=== PATIENT | female | born 2000 | race Caucasian/White ===

== ENCOUNTER 2024-06-26 07:57 | Inpatient (IN) ==
[2024-06-26] MEDS ORDERED: OXYTOCIN 10 UNIT/ML VIAL IM PRN (08:05)
[2024-06-26] MEDS ORDERED: fentaNYL 100 MCG/2 ML VIAL IVP PRN (08:05)
[2024-06-26] MEDS ORDERED: LABETALOL 20 MG/4 ML SYRINGE IVP PRN ×5 (08:05→19:31)
[2024-06-26] MEDS ORDERED: lidocaine 1% 20 ML MDV ID PRN (08:05)
[2024-06-26] MEDS ORDERED: TERBUTALINE 1 MG/ML VIAL SUBQ PRN (08:05)
[2024-06-26] MEDS ORDERED: hydrALAZINE INJ 20 MG/ML VIAL IVP PRN ×3 (08:05→19:31)
[2024-06-26] MEDS ORDERED: TRANEXAMIC ACID IN NACL 1,000 MG/100 ML BAG IV PRN (08:05)
[2024-06-26] MEDS ORDERED: NIFEdipine 10 MG CAPSULE PO PRN ×2 (08:05→19:31)
[2024-06-26] MEDS ORDERED: METHYLERGONOVINE 0.2 MG/ML VIAL IM PRN (08:05)
[2024-06-26] MEDS ORDERED: miSOPROStoL 200 MCG TABLET PR PRN (08:05)
[2024-06-26] MEDS ORDERED: miSOPROStoL 200 MCG TABLET BC PRN (08:05)
[2024-06-26] MEDS ORDERED: METOCLOPRAMIDE 10 MG TABLET PO PRN (08:09)
--- NOTE | 2024-06-26 08:13 | HISTORY & PHYSICAL EXAMINATION ---
Admit History Smoking Status: Never smoker Other Maternal History Other Maternal History: HPI: This 23 yo G1P @ 40 weeks by LMP and confirmed by 13+3 week ultrasound, presents to L&D for scheduled induction of labor but has been tyrone and laboring throughout the night. Minimal rest between contraction. No leaking of fluids or concern for SROM. Contractions continued to become stronger and closer together throughout the night. Upon arrival her cervix was 6/100/-2 vertex with intact membranes. Reviewed that risks of labor include but are not limited to section, prolonged labor, vacuum extraction, episotomy, hemorrhage, and additional risks exist re: prolonged second stage related to extraction. Reviewed back up OBGYN is available for consultations, emergency interventions and transfer of care if indicted. She has been a patient of [facility] care for the duration of her which has remained uncomplicated. ROS: No Headache, visual changes or right upper quadrant abdominal pain. Denies significant N/V. Denies urinary urgency or dysuria. All other symptoms reviewed and were negative except per HPI. In the event of an emergency, accepts the administration of blood products. Recent BP: WNL Labs: H&H 10.7/34.5, 233 Last u/s EFW: (06/09/2024) 3136.3 g (48.8%) Total maternal weight gain: 43# Expected Delivery Route/Plan Anticipate Specific Issues/Plans LMP: 09/20/2023 JENNIFER by LMP: 06/26/2024 U/S: 12/24/2023 @ 13+3 weeks Final JENNIFER: 06/26/2024 ALLERGIES NKDA RX: Aspirin, Epipen, Pepcid, Reglan, PNV Medical Hx: no significant Surgical: None FMHX: Aunt: Breast Cancer MGM : Cancer Social Hx: Never smoker. No ETOH or IV drug use. Partner Magdalena is active duty [employer]. She works as an infant and toddler daycare worker. Pre- weight:135 BMI: Blood type: O+ Antibody screen: neg CBC: PLT: 246 HCT: 39.7% HGB:14.2 rubella: Immune VZV: NR HBsAg: negative HepC: NR RPR/AB-EIA: NR HIV:NR Flu: 12/09/2024 COVID: x3 (booster 12/09/2024) PAP: GC/CT: 12/24/2023 Negative HSV:denies self and partner Genetic Testing:NIPT- negative AFP- NO FAS:02/14/2024 Placenta: Left Anterior Cord: 3VC MELY: 11.9cm EFW: 378g 34%tile 50gm GCT: 98 TDAP:BASE Breast Pump:has one 3rd trimester H/H- 11.5/34.7; PLT- 230 GBS: 05/29/2024 negative Physical exam: Normocephalic, atraumatic No increased work of breathing. Abdomen gravid, soft, nontender. EFW 3600 FHR baseline 135, minimal to moderate variability, + accelerations, no decelerations Contractions palpate moderate every 2-5 minutes with soft resting tone SVE 6/100/-2, vertex, membranes intact Bilateral LE's no edema Mood is good. Assessment: 23 yo @ 40+0 weeks gestation by 13+3 wk U/S Active labor FHR 135 Cat I GBS NEG Plan: Admit to [facility] for Expectant management Continuous monitoring/ Intermittent heart rate auscultation as indicated by unit protocol Jacuzzi PRN. Nitrous oxide PRN. Epidural PRN Maternal Request, desires at the time of admission Anticipate . Meds/Allgy Home Medications Ambulatory Orders Medication Instructions Recorded Confirmed vitamin with calcium 1 tab PO ONCE 12/17/23 0 06/20/24 no.72-iron 27 mg-folic acid 1 mg tablet (M-Itzel Plus) aspirin 81 mg tablet,delayed 81 mg PO QDAY #90 tabs 06/20/24 release (Adult Aspirin Regimen) epinephrine 0.3 mg/0.3 mL 0.3 mg (0.3 mL) IM Q10M PRN 12/24/23 06/20/24 injection, auto-injector (EpiPen) anaphylaxis #1 ea famotidine 20 mg tablet (Pepcid) 20 mg PO BID PRN chantal rgic symptoms 12/24/23 06/20/24 #30 tabs metoclopramide HCl 5 mg tablet 5 mg PO Q6H PRN nausea and 12/24/23 06/20/24 vomiting #60 tabs calcium carbonate (Tums) 200 mg PO BID 05/01/2406/20 Allergies Allergies Allergy/AdvReac Type Severity Reaction Status Date / Time No Known Drug Allergies Allergy Verified 06/20/24 09:12 [facility] Active Problems All Active Problems (Updated 06/26/24 @ 08:54 by Ingrid [facility]) 40 weeks gestation of (Acute) Uterine contractions (Acute) Uterine size date discrepancy (Acute) Supervision of normal in third trimester (Acute) Abnormal ultrasound (Acute) Pelvic pain in female (Acute) Supervision of normal in second trimester (Acute) Encounter for other specified screening (Acute) Encounter for supervision of normal , unspecified, first trimester (Acute) Positive test (Acute) Family History Family History (System 03/14/24 @ 08:47 by Lucy Terry) Aunt Breast cancer Maternal grandmother Cancer Social History Social History (System 03/14/24 @ 08:47 by Lucy Terry) Smoking Status: Never smoker Second hand tobacco smoke exposure: No Do you dip or chew tobacco?: No Do you vape?: No Relationship: Do you feel safe in your home environment?: Yes Suffered physical, verbal, emotional, or financial abuse?: No 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
[2024-06-26] MEDS: LACTATED RINGERS 1,000 ML IV PRN (08:36)
[2024-06-26 08:38] LABS: BASOPHILS % (AUTO) 0.3 %; EOSINOPHILS % (AUTO) 0.1 %; HCT - HEMATOCRIT 34.5 % (37.0-47.0); HGB - HEMOGLOBIN 10.7 g/dL (12.0-16.0); LYMPHOCYTES # (AUTO) 1.4 10^3/uL (1.5-3.5); LYMPHOCYTES % (AUTO) 8.9 %; MEAN CORPUSCULAR HEMOGLOBIN 25.7 pg (27.0-31.0); MEAN CORPUSCULAR VOLUME 82.7 fL (81.0-99.0); MEAN PLATELET VOLUME 11.4 fL (7.9-10.8); MONOCYTES # (AUTO) 0.8 10^3/uL (0.0-1.0); MONOCYTES % (AUTO) 4.8 %; NEUTROPHILS # (AUTO) 13.5 10^3/uL (1.5-6.6); NEUTROPHILS % (AUTO) 85.4 %; PLT - PLATELET COUNT 233 10^3/uL (130-450); RED BLOOD COUNT 4.17 10^6/uL (4.20-5.40); RED CELL DISTRIBUTION WIDTH 13.9 % (12.0-15.0); WHITE BLOOD COUNT 15.8 x10^3/uL (4.8-10.8)
[2024-06-26] MEDS ORDERED: LIDOCAINE 2%-EPI 1:100000 20 ML MDV ONE (08:55)
[2024-06-26] MEDS ORDERED: ROPIVACAINE 0.2% 200 MG/100 ML BAG EP ONE (08:55)
[2024-06-26] MEDS: LACTATED RINGERS 500 ML IV ONE (09:45)
[2024-06-26] MEDS: LACTATED RINGERS 1,000 ML IV SCH (09:48)
[2024-06-26] MEDS ORDERED: NALOXONE 0.4 MG/ML VIAL IVP PRN ×2 (09:49→19:31)
[2024-06-26] MEDS ORDERED: ePHEDrine 50 MG/ML VIAL IVP PRN (09:49)
[2024-06-26] MEDS ORDERED: ONDANSETRON 4 MG/2 ML VIAL IVP PRN (09:49)
[2024-06-26] MEDS ORDERED: diphenhydrAMINE INJ 50 MG/ML VIAL IVP PRN (09:49)
[2024-06-26] MEDS ORDERED: NALBUPHINE 10 MG/ML AMP IVP PRN (09:49)
[2024-06-26] MEDS ORDERED: METOCLOPRAMIDE 10 MG/2 ML VIAL IVP PRN (09:49)
--- NOTE | 2024-06-26 09:49 | PHARMACY PROGRESS NOTE ---
Best Possible Medication History Admit Date and Time: 06/26/24 [id number] Home Medications Medication Instructions Recorded Confirmed Type vitamin with calcium 1 tab PO ONCE 12/17/23 0 06/26/24 History no.72-iron 27 mg-folic acid 1 mg tablet (M-Itzel Plus) aspirin 81 mg tablet,delayed 81 mg PO QDAY #90 tabs 06/26/24 Rx release (Adult Aspirin Regimen) epinephrine 0.3 mg/0.3 mL 0.3 mg (0.3 mL) IM Q10M PRN 12/24/23 06/20/24 Rx injection, auto-injector (EpiPen) anaphylaxis #1 ea famotidine 20 mg tablet (Pepcid) 20 mg PO BID PRN chantal rgic symptoms 12/24/23 06/26/24 Rx #30 tabs calcium carbonate (Tums) 200 mg PO BID 05/01/2406/26 History Medications reviewed in ED?: Yes Medication History completed: Yes Patient Interview: Pt unable to participate Secondary Source(s): Caregiver and Insurance records [facility] Statement: Per RN conversation and review of [facility] records. As the person ultimately responsible for medication therapy, providers are able to order a medication from an existing home medication list in [facility] via the "Reconcile Routine" prior to Confirmation of that medication by security support analyst. Such practice is discouraged except when the physician, in their clinical judgment, deems that a medical need exists for a medication without regard to previous use.
--- NOTE | 2024-06-26 10:46 | ANESTHESIA PROCEDURE NOTE ---
Pre-Anesthesia VS, & Labs Diagnosis Surgical Diagnosis:: 40 weeks, presenting in labor/6cm Procedure Procedure: placement of labor epidural Vitals Vital Signs: Temp Pulse Resp BP 36.9 C 94 16 125/73 06/26/24 08:42 06/26/24 08:42 06/26/24 08:42 06/26/24 08:42 Height (in): 5 ft 4 in Weight (kg): 78 kg Body Mass Index: 29.5 BMI Classification: Overweight NPO Last Fluid Intake: on clears Last Food Intake: >8hr Is Patient ?: Yes Estimated Due Date:: 06/26/24 Lab Results Current Lab Results: Laboratory Tests 06/26/24 08:25: WBC 15.8 H, RBC 4.17 L, Hgb 10.7 L, Hct 34.5 L, MCV 82.7, MCH 25.7 L, MCHC 31.0 L, RDW 13.9, Plt Count 233, MPV 11.4 H, Neut # (Auto) 13.5 H, Lymph # (Auto) 1.4 L, [place] # (Auto) 0.8, Eos # (Auto) 0.0, Baso # (Auto) 0.0, Absolute Nucleated RBC 0.00, Nucleated RBC % 0.0, Blood Type O POSITIVE, Antibody Screen NEGATIVE Lab results reviewed: Yes 06/26/24 08:25 Meds/Allgy Home Medications Ambulatory Orders Medication Instructions Recorded Confirmed vitamin with calcium 1 tab PO ONCE 12/17/23 0 06/26/24 no.72-iron 27 mg-folic acid 1 mg tablet (M- Plus) aspirin 81 mg tablet,delayed 81 mg PO QDAY #90 tabs 06/26/24 release (Adult Aspirin Regimen) epinephrine 0.3 mg/0.3 mL 0.3 mg (0.3 mL) IM Q10M PRN 12/24/23 06/20/24 injection, auto-injector (EpiPen) anaphylaxis #1 ea famotidine 20 mg tablet (Pepcid) 20 mg PO BID PRN chantal rgic symptoms 12/24/23 06/26/24 #30 tabs calcium carbonate (Tums) 200 mg PO BID 05/01/2406/26 Allergies Allergies Allergy/AdvReac Type Severity Reaction Status Date / Time No Known Drug Allergies Allergy Verified 06/20/24 09:12 PFSH Active Problems All Active Problems 40 weeks gestation of (Acute) Uterine contractions (Acute) Uterine size date discrepancy (Acute) Supervision of normal in third trimester (Acute) Abnormal ultrasound (Acute) Pelvic pain in female (Acute) Supervision of normal in second trimester (Acute) Encounter for other specified screening (Acute) Encounter for supervision of normal , unspecified, first trimester (Acute) Positive test (Acute) Family History Family History Aunt Breast cancer Maternal grandmother Cancer Social History Social History Smoking Status: Never smoker Second hand tobacco smoke exposure: No Do you dip or chew tobacco?: No Do you vape?: No Relationship: Do you feel safe in your home environment?: Yes Suffered physical, verbal, emotional, or financial abuse?: No 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
--- NOTE | 2024-06-26 12:32 | PROVIDER PROGRESS NOTE ---
Subjective Subjective Subjective: SVE 7.5/100/-2, AROM clear fluid, small amount. FHT primarily cat I, occasional cat II, overall reassuring tracing. Contractions irregular 2-4 minutes, some prolonged. Will reevaluate in 4 hours if undelivered and consider oxytocin if needed. Current Medications Current Medications Current Medications: Current Medications Generic Name Dose Route Start Last Admin Trade Name Freq PRN Reason Stop Dose Admin Calcium Carbonate/Glycine 200 mg 06/26/24 09:00 Calcium Carbonate Chew 500 Mg Tablet PO BID ANITA Diphenhydramine HCl 12.5 - 25 mg 06/26/24 09:49 Diphenhydramine Inj 50 Mg/Ml Vial IVP Q6HR PRN ITCHING Ephedrine Sulfate 5 mg 06/26/24 09:49 Ephedrine 50 Mg/Ml Vial IVP Q5M PRN For SBP<100;give until SBP>100 Fentanyl 50 mcg 06/26/24 08:05 Fentanyl 100 Mcg/2 Ml Vial IVP Q1H PRN Severe Pain (score 7-10) Hydralazine HCl 5 - 10 mg 06/26/24 08:05 Hydralazine Inj 20 Mg/Ml Vial IVP Q20M PRN SBP> or= 160 OR DBP> or= 110 Protocol Lactated Ringer's 500 mls @ 999 mls/hr 06/26/24 08:05 06/26/24 09:44 Lr IV Infused PRN PRN Infusion Heart Rate Abnormalities Oxytocin/Sodium Chloride 500 mls @ 999 mls/hr 06/26/24 08:05 Pitocin/Sodium Chloride IV PRN PRN POST- HEMORR PREVENTION Protocol 999 MILLIUNIT/MIN Tranexamic Acid 1,000 mg in 100 mls @ 600 mls/hr 06/26/24 08:05 Tranexamic 1,000 Mg/100ml-Nacl IV Q30M PRN EBL >1200mL and within 3hr Lactated Ringer's 1,000 mls @ 125 mls/hr 06/26/24 10:00 06/26/24 12:06 Lr IV 125 mls/hr .Q8H ANITA Administration Ropivacaine 200 mg in 100 mls @ 0 mls/hr 06/26/24 09:49 Naropin 0.2% EP PRN PRN PAIN Protocol Per Protocol Labetalol HCl 20 - 80 mg 06/26/24 08:05 Labetalol 20 Mg/4 Ml Syringe IVP Q10M PRN SBP> or= 160 OR DBP> or= 110 Protocol Labetalol HCl 20 mg 06/26/24 08:05 Labetalol 20 Mg/4 Ml Syringe IVP .ONCE PRN SBP> or= 160 OR DBP> or= 110 Protocol Labetalol HCl 20 - 40 mg 06/26/24 08:05 Labetalol 20 Mg/4 Ml Syringe IVP Q10M PRN SBP> or= 160 OR DBP> or= 110 Protocol Lidocaine HCl 20 ml 06/26/24 08:05 Lidocaine 1% 20 Ml Mdv ID 06/29/24 08:06 .ONCE PRN PERINEAL REPAIR Methylergonovine Maleate 0.2 mg 06/26/24 08:05 Methylergonovine 0.2 Mg/Ml Vial IM .ONCE PRN Hemorrhage Metoclopramide HCl 5 mg 06/26/24 08:09 Metoclopramide 10 Mg Tablet PO Q6H PRN nausea and vomiting Metoclopramide HCl 10 mg 06/26/24 09:49 Metoclopramide 10 Mg/2 Ml Vial IVP Q6HR PRN Nausea / Vomiting Misoprostol 600 mcg 06/26/24 08:05 Misoprostol 200 Mcg Tablet BC .ONCE PRN Hemorrhage Misoprostol 800 mcg 06/26/24 08:05 Misoprostol 200 Mcg Tablet MD .ONCE PRN Hemorrhage Nalbuphine HCl 2.5 - 5 mg 06/26/24 09:49 Nalbuphine 10 Mg/Ml Amp IVP Q4H PRN ITCHING Naloxone HCl 0.1 mg 06/26/24 09:49 Naloxone 0.4 Mg/Ml Vial IVP Q2M PRN RR<8 Nifedipine 10 - 20 mg 06/26/24 08:05 Nifedipine 10 Mg Capsule PO Q20M PRN SBP> or= 160 OR DBP> or= 110 Protocol Ondansetron HCl 4 mg 06/26/24 09:49 Ondansetron 4 Mg/2 Ml Vial IVP Q6HR PRN Nausea / Vomiting Oxytocin 10 unit 06/26/24 08:05 Oxytocin 10 Unit/Ml Vial IM .ONCE PRN Step One if no IV access. Sodium Chloride 10 ml 06/26/24 08:05 Sodium Chloride Flush 0.9% 10 Ml Syringe IVP PRN PRN NEEDED PER PROVIDER ORDERS Sodium Chloride 10 ml 06/26/24 09:00 Sodium Chloride Flush 0.9% 10 Ml Syringe IVP Q8H ANITA Terbutaline Sulfate 0.25 mg 06/26/24 08:05 Terbutaline 1 Mg/Ml Vial SUBQ .ONCE PRN Tachystole Objective Vital Signs/Intake & Output Vital Signs: Vital Signs x48h Temp Pulse Resp BP 06/26/24 09:49 16 06/26/24 08:42 36.9 C 94 16 125/73 Intake & Output: Intake & Output 06/23/24 06/24/24 06/25/24 06/26/24 23:59 23:59 23:59 23:59 Intake Total 1999 Balance 1999 Weight (kg) 171 lb 15.369 oz Lab Results 06/26/24 08:25 Other Labs: Lab Results x24hrs 06/26/24 Range/Units 08:25 WBC 15.8 H (4.8-10.8) x10^3/uL RBC 4.17 L (4.20-5.40) 10^6/uL Hgb 10.7 L (12.0-16.0) g/dL Hct 34.5 L (37.0-47.0) % MCV 82.7 (81.0-99.0) fL MCH 25.7 L (27.0-31.0) pg MCHC 31.0 L (32.0-36.0) g/dL RDW 13.9 (12.0-15.0) % Plt Count 233 (130-450) 10^3/uL MPV 11.4 H (7.9-10.8) fL Neut # (Auto) 13.5 H (1.5-6.6) 10^3/uL Lymph # (Auto) 1.4 L (1.5-3.5) 10^3/uL [place] # (Auto) 0.8 (0.0-1.0) 10^3/uL Eos # (Auto) 0.0 (0.0-0.7) 10^3/uL Baso # (Auto) 0.0 (0.0-0.1) 10^3/uL Absolute Nucleated RBC 0.00 x10^3/uL Nucleated RBC % 0.0 /100WBC Blood Type O POSITIVE Antibody Screen NEGATIVE Assessment/Plan Problem List (1) 40 weeks gestation of :
[2024-06-26] MEDS: ROPIVACAINE 0.2% 200 MG/100 ML BAG EP PRN (15:27)
[2024-06-26] MEDS: OXYTOCIN/SODIUM CHLORIDE 500 ML IV SCH (16:31)
--- NOTE | 2024-06-26 16:32 | PROVIDER PROGRESS NOTE ---
Labor Progress Note Labor Progress Note Labor Progress Note/Additional Text: Comfortable with epidural. Contractions q 2-5 minutes. SVE 9/100/0. Open to oxytocin augmentation to augment labor. FHT 135-140, moderate variability, + accelerations, intermittent variables, late decelerations and early decelerations. Overall category I, intermittent category II tracing. Orders placed to begin oxytocin at 2mu/min. RN to titrate pitocin according to unit policy. Minimal urine output, initially dark, now more drawing tender yellow 110cc in about 5 hours. Has received approximately 2L of fluid. Dalton bulb deflated and reinserted a little higher in the event the head was compressing the bulb/tubing in some way. Will plan to straight cath after delivery and will pause to straight cath with prolonged pushing timeline as well.
[2024-06-26] MEDS: OXYTOCIN/SODIUM CHLORIDE 500 ML IV PRN (18:56)
[2024-06-26] MEDS ORDERED: SIMETHICONE CHEW 80 MG TABLET PO PRN (19:31)
[2024-06-26] MEDS ORDERED: OXYTOCIN/SODIUM CHLORIDE 500 ML IV PRN (19:31)
[2024-06-26] MEDS ORDERED: diphenhydrAMINE 25 MG CAPSULE PO PRN (19:31)
[2024-06-26] MEDS ORDERED: LABETALOL 5 MG/1 ML 20 ML MDV IVP PRN (19:31)
--- NOTE | 2024-06-26 19:35 | DELIVERY NOTE ---
Delivery Note Delivery Outcome Delivery Date: 06/26/24 Delivery Time: 18:53 Delivery Comments (Free Text/Narrative) Delivery Comments (Free Text/Narrative): This 23 -year-old, . @ 40+0 weeks gestation by 13+3 week ultrasound/ LMP presented @ 0800 for scheduled induction of labor but was instead in active labor and in good condition. Cervix was 6cm and Vertex presentation by melonie's. GBS negative. Oxytocin used just prior to delivery for augmentation max dose 2mu/min. FHR pattern demonstrated 135-140 baseline in a category I-II prior to second stage. Normal labor course. Epidural placed upon maternal request. AROM occurred @ 1217. She then progressed to complete/complete @ 1803 and ready to deliver, active second stage began shortly after. : Normal spontaneous vaginal delivery of a viable male on 06/26/2024 @ 1853 (TORSTEN). No nuchal cord. The was placed on maternal abdomen, stimulated, dried and placed skin to skin. Apgars 8 & 9 @ 1 & 5 minutes. The umbilical cord was allowed to stop pulsating at which time it was doubly clamped by delivering provider and cut by FOB. 3VC. Cord blood was obtained. Fundal massage and gently cord traction applied for active management of the third stage, placenta delivered spontaneously and intact and appeared normal @ 1901. EBL 150cc. Placenta was not sent to pathology. Pitocin administered via IV for hemostasis and allowed to run freely. Uterine massage was performed until uterus was deemed firm. weight pending at this time. Inspection of the perineum noted an abrasion on right labia miniora as well as a first-degree midline laceration. Both the abrasions and the laceration was repaired under epidural anesthesia with running 3-0 vicryl rapide, repaired in standards fashion under sterile conditions. Upon re-inspection the patient was hemostatic. Uterus again massaged and found to be firm and well below the umbilicus. Needle and sponge counts were correct. No excessive bleeding. Tissues well approximated. Skin to skin initiated. Family bonding well. Both mother and baby are in stable condition.
[2024-06-26] MEDS: DOCUSATE SODIUM 100 MG CAPSULE PO SCH (21:00)
[2024-06-26] MEDS: SODIUM CHLORIDE FLUSH 0.9% 10 ML SYRINGE IVP SCH (23:57)
[2024-06-27] MEDS: WITCH HAZEL/GLYCERIN 1 PAD TOP PRN (02:20)
[2024-06-27] MEDS: CALCIUM CARBONATE CHEW 500 MG TABLET PO SCH (07:24)
[2024-06-27] MEDS ORDERED: CALCIUM CARBONATE CHEW 500 MG TABLET PO PRN (07:35)
[2024-06-27] MEDS: ACETAMINOPHEN 500 MG TABLET PO PRN (09:20)
[2024-06-27] MEDS: IBUPROFEN 600 MG TABLET PO PRN (09:21)
[2024-06-27] MEDS: SODIUM CHLORIDE FLUSH 0.9% 10 ML SYRINGE IVP PRN (09:25)
--- NOTE | 2024-06-27 10:01 | PROVIDER PROGRESS NOTE ---
Subjective Subjective Subjective: Subjective: Patient reports she is doing well. Comfortable WITHOUT pain management Lochia appropriate. Denies heavy bleeding. Ambulating. Perineal, pelvic and abdominal pain well-controlled. Tolerating oral intake. Diet: Regular. Voiding without difficulty. Passing flatus. Denies BM. Patient is bonding with baby in room Breast feeding going well. Denies feeling lightheaded, dizzy or excessively fatigued. Objective General: Alert, oriented, no apparent distress. Cardiovascular: No edema. Regular rate. Regular rhythm. Lungs: No increased work of breathing. Abdomen: Uterus firm. Below umbilicus. No guarding or rebound tenderness. Extremities: No pain on palpation. Distal pulses intact. VZV: Reactive/immune Rubella: immune Assessment and Plan day 1. 23yo s/p on 06/26/2024 following spontaneous onset of labor @ 40 weeks gestation, doing well. weight: 3441 g, 58 %ile - Routine - Anticipate discharge tomorrow Current Medications Current Medications Current Medications: Current Medications Generic Name Dose Route Start Last Admin Trade Name Freq PRN Reason Stop Dose Admin Acetaminophen 1,000 mg 06/26/24 19:31 06/27/24 09:20 Acetaminophen 500 Mg Tablet PO 1,000 mg Q8HR PRN Administration Mild Pain or Fever>38C(100.4F) Calcium Carbonate/Glycine 250 mg 06/27/24 07:35 Calcium Carbonate Chew 500 Mg Tablet PO BID PRN Heartburn Diphenhydramine HCl 25 mg 06/26/24 19:31 Diphenhydramine 25 Mg Capsule PO QPM PRN Insomnia Docusate Sodium 100 mg 06/26/24 21:00 06/27/24 09:20 Docusate Sodium 100 Mg Capsule PO 100 mg BID ANITA Administration Hydralazine HCl 5 - 10 mg 06/26/24 08:05 Hydralazine Inj 20 Mg/Ml Vial IVP Q20M PRN SBP> or= 160 OR DBP> or= 110 Protocol Hydralazine HCl 10 mg 06/26/24 19:31 Hydralazine Inj 20 Mg/Ml Vial IVP .ONCE PRN SBP> or= 160 OR DBP> or= 110 Protocol Hydralazine HCl 5 - 10 mg 06/26/24 19:31 Hydralazine Inj 20 Mg/Ml Vial IVP Q20M PRN SBP >=160 and/or DBP >=110 Protocol Ibuprofen 600 mg 06/26/24 19:31 06/27/24 09:21 Ibuprofen 600 Mg Tablet PO 600 mg Q6HR PRN Administration Moderate Pain (Level 4-6) Labetalol HCl 20 - 80 mg 06/26/24 08:05 Labetalol 20 Mg/4 Ml Syringe IVP Q10M PRN SBP> or= 160 OR DBP> or= 110 Protocol Labetalol HCl 20 mg 06/26/24 08:05 Labetalol 20 Mg/4 Ml Syringe IVP .ONCE PRN SBP> or= 160 OR DBP> or= 110 Protocol Labetalol HCl 20 - 40 mg 06/26/24 08:05 Labetalol 20 Mg/4 Ml Syringe IVP Q10M PRN SBP> or= 160 OR DBP> or= 110 Protocol Labetalol HCl 20 - 80 mg 06/26/24 19:31 Labetalol 5 Mg/1 Ml 20 Ml Mdv IVP Q10M PRN SBP> or= 160 OR DBP> or= 110 Protocol Labetalol HCl 20 - 40 mg 06/26/24 19:31 Labetalol 20 Mg/4 Ml Syringe IVP Q10M PRN SBP> or= 160 OR DBP> or= 110 Protocol Labetalol HCl 20 mg 06/26/24 19:31 Labetalol 20 Mg/4 Ml Syringe IVP .ONCE PRN SBP >=160 and/or DBP >=110 Protocol Metoclopramide HCl 5 mg 06/26/24 08:09 Metoclopramide 10 Mg Tablet PO Q6H PRN nausea and vomiting Nifedipine 10 - 20 mg 06/26/24 08:05 Nifedipine 10 Mg Capsule PO Q20M PRN SBP> or= 160 OR DBP> or= 110 Protocol Nifedipine 10 - 20 mg 06/26/24 19:31 Nifedipine 10 Mg Capsule PO Q20M PRN SBP >=160 and/or DBP >=110 Protocol Simethicone 80 mg 06/26/24 19:31 Simethicone Chew 80 Mg Tablet PO TID PRN Gas Sodium Chloride 10 ml 06/26/24 08:05 06/27/24 09:25 Sodium Chloride Flush 0.9% 10 Ml Syringe IVP 10 ml PRN PRN Administration NEEDED PER PROVIDER ORDERS Witch Shanna/Glycerin 1 pad 06/27/24 01:43 06/27/24 02:20 Witch Shanna/Glycerin 1 Pad TOP 1 pad PRN PRN Administration ITCHING Objective Vital Signs/Intake & Output Vital Signs: Vital Signs x48h Temp Pulse Pulse Resp BP Pulse Ox 06/27/24 05:41 36.7 C 70 14 88/56 L 97 06/27/24 02:23 36.9 C 68 16 109/70 Intake & Output: Intake & Output 06/24/24 06/25/24 06/26/24 06/27/24 23:59 23:59 23:59 23:59 Intake Total 3500 / 3500 500 / 500 Output Total 275 / 275 Balance 3225 / 3225 500 / 500 Weight (kg) 171 lb 15.369 oz Lab Results 06/26/24 08:25 Assessment/Plan Problem List (1) 40 weeks gestation of :
[2024-06-27 19:35] VITALS: O2SAT 98
[2024-06-28 08:02] VITALS: BP 97/63; TEMP 97.7
--- NOTE | 2024-06-28 08:17 | Discharge Summary ---
Discharge Summary HPI History of Present Illness: Date of Admission: 06/26/2024 Date of Discharge: 06/28/2024 Diagnosis on admission: Diagnosis on Discharge Physical exam: Normocephalic, atraumatic No increased work of breathing Normal uterine involution, FF below umbilicus Small rubra bleeding Minimal perineal discomfort. Bilateral LE's no edema Mood is good. Brief History: This 23 -year-old, . @ 40+0 weeks gestation by 13+3 week ultrasound/ LMP presented @ 0800 for scheduled induction of labor but was instead in active labor and in good condition. Cervix was 6cm and Vertex presentation by melonie's. GBS negative. Oxytocin used just prior to delivery for augmentation max dose 2mu/min. FHR pattern demonstrated 135-140 baseline in a category I-II prior to second stage. Normal labor course. Epidural placed upon maternal request. AROM occurred @ 1217. She then progressed to complete/complete @ 1803 and ready to deliver, active second stage began shortly after. : Normal spontaneous vaginal delivery of a viable male on 06/26/2024 @ 1853 (TORSTEN). No nuchal cord. The was placed on maternal abdomen, stimulated, dried and placed skin to skin. Apgars 8 & 9 @ 1 & 5 minutes. The umbilical cord was allowed to stop pulsating at which time it was doubly clamped by delivering provider and cut by FOB. 3VC. Cord blood was obtained. Fundal massage and gently cord traction applied for active management of the third stage, placenta delivered spontaneously and intact and appeared normal @ 1901. EBL 150cc. Placenta was not sent to pathology. Pitocin administered via IV for hemostasis and allowed to run freely. Uterine massage was performed until uterus was deemed firm. weight pending at this time. Inspection of the perineum noted an abrasion on right labia miniora as well as a first-degree midline laceration. Both the abrasions and the laceration was repaired under epidural anesthesia with running 3-0 vicryl rapide, repaired in standards fashion under sterile conditions. Upon re-inspection the patient was hemostatic. Uterus again massaged and found to be firm and well below the umbilicus. weight: 3441g She has been doing well in her course. She is ambulating and tolerating a regular diet. She is urinating without difficulty and her lochia is normal. Her pain is well controlled without narcotic management. She will be discharged to home today on day #2 and encouraged IBU, tylenol and stool softeners PRN. [facility] for [facility]health. Current visit scheduled for 07/06/2024 @ 1300 with myself. She has been given precautions to call if she has any new or worsening sx such as fevers, chills, abdominal pain, increasing bleeding, or foul smelling vaginal lochia. preeclamptic precautions reviewed as well. Desired depo provera for control. A dose has been ordered for her prior to her departure. Will likely want Nexplanon at 3 months . ALLERGIES Allergies Allergy/AdvReac Type Severity Reaction Status Date / Time No Known Drug Allergies Allergy Verified 06/20/24 09:12 MEDICATIONS Ambulatory Orders Medication Instructions Recorded Confirmed vitamin with calcium 1 tab PO ONCE 12/17/23 0 06/26/24 no.72-iron 27 mg-folic acid 1 mg tablet (M- Plus) epinephrine 0.3 mg/0.3 mL 0.3 mg (0.3 mL) IM Q10M PRN 12/24/23 06/20/24 injection, auto-injector (EpiPen) anaphylaxis #1 ea famotidine 20 mg tablet (Pepcid) 20 mg PO BID PRN chantal rgic symptoms 12/24/23 06/26/24 #30 tabs calcium carbonate (Tums) 200 mg PO BID 05/01/2406/26 PHYSICAL EXAM AT DISCHARGE Vital Signs: Vital Signs x48h Temp Pulse Resp BP Pulse Ox 06/28/24 08:01 36.5 C 62 16 97/63 06/28/24 04:28 36.7 C 63 14 111/75 98 LABS 06/26/24 08:25 Discharge Plan Discharge Patient Disposition: [facility], Self Care Medically Cleared Date:: 06/28/24 Prescriptions: Continued M- Plus 27 mg iron- 1 mg tablet 1 tab PO ONCE epinephrine [EpiPen] 0.3 mg/0.3 mL auto-injector 0.3 mg IM Q10M PRN (Reason: anaphylaxis) Qty: 1 2RF Rx Instructions: for 2 doses famotidine [Pepcid] 20 mg tablet 20 mg PO BID PRN (Reason: allergic symptoms) Qty: 30 2RF calcium carbonate [Tums] 200 mg calcium (500 mg) tablet,chewable 200 mg PO BID Discontinued aspirin [Adult Aspirin Regimen] 81 mg tablet,delayed release (DR/EC) 81 mg PO QDAY Qty: 90 4RF Rx Instructions: Take daily starting at 12 weeks gestation. Print Language: Spanish Patient Instructions: Breastfeed How To, Breastfeed Holds, Vaginal, Anatomy, Self Care
--- NOTE | 2024-06-28 16:27 | Labor Flowsheet ---
Labor Flowsheet Datetime Report Generated by CPN: 06/28/2024 16:27 Datetime: 06/28/2024 07:55 VITAL SIGNS NBP Sys/Donya/Mean (mmHg): 97 : 63 : 70 Pulse: 55 Datetime: 06/26/2024 23:23 Membranes Ruptured Date/Time: 06/26/2024 12:17 Datetime: 06/26/2024 20:59 Stage of : Recovery Datetime: 06/26/2024 19:05 PAIN Pain Scale: 0 Datetime: 06/26/2024 19:01 Communication Comments: delivery of placenta Datetime: 06/26/2024 19:00 LaborFlag: Labor Datetime: 06/26/2024 18:45 UTERINE ACTIVITY Monitor Mode: External Frequency (min): 1.5-3 Quality: Moderate Pattern: Normal: <= 5 Contractions in 10 Minutes Resting Tone (Palpate): Relaxed Pitocin Checklist: At Least 1 Acceleration of 15 bpm x 15 Seconds in 30 Minutes or Adequate Variability; No More than 1 Late Deceleration Occurred in Past 30 Minutes; No More than 2 Variable Decelerations > 60 Seconds in Duration and decreasing >60 bpm in 30 minutes; No More than 5 Uterine Contractions in 10 Minutes for any 20 Minute Interval; Uterus Palpates Soft between Contractions ASSESSMENT A Monitor Mode: Telemetry FHR Baseline Rate : 140 Variability: Moderate 6-25 bpm Accelerations: 15X15 Decelerations: Variable Datetime: 06/26/2024 18:30 Category: Category I Datetime: 06/26/2024 18:10 I/O Interventions: Steward Discontinued Patient Care Comments: 150 mls of clear yellow urine in steward bag Datetime: 06/26/2024 18:03 VAGINAL EXAM Dilatation (cm): 10.0 Effacement (%): 100 Station: 0 Exam by: Yung Palomo CNM Vaginal Bleeding: Normal Show Datetime: 06/26/2024 18:00 Duration (sec): 60-90 Datetime: 06/26/2024 17:45 COMMUNICATION Communication: RN Reviewed Strip Datetime: 06/26/2024 17:20 Patient Position/Activity: High Fowlers Datetime: 06/26/2024 17:16 Provider Reviewed Strip: Yes Datetime: 06/26/2024 16:31 MEDICATIONS Pitocin (milliunits): Started @ 2 Datetime: 06/26/2024 16:30 Monitor Interventions for UA: [place] Adjusted Datetime: 06/26/2024 16:13 Cervix, Consistency: Soft Datetime: 06/26/2024 15:57 Temperature (C): 37.3 Datetime: 06/26/2024 14:07 Cervix, Position: Anterior Vaginal Exam Comments: Patient consent to exam Datetime: 06/26/2024 13:45 Contraction Comments: Pt repositioned Datetime: 06/26/2024 12:30 FHR Baseline Changes: No Baseline Change Datetime: 06/26/2024 12:29 SpO2 (%): 99 Datetime: 06/26/2024 12:17 Membrane Status: Ruptured Membranes Rupture Method: Artificial Amniotic Fluid Color: Clear Amniotic Fluid Amount: Small Amniotic Fluid Odor: None Datetime: 06/26/2024 12:00 Oxygen Method: Room Air Datetime: 06/26/2024 11:38 Notification Reason: Status Datetime: 06/26/2024 11:34 Monitor Interventions for FHR: Ultrasound Adjusted Comments: nurse at bedside. Strip reviewed Datetime: 06/26/2024 11:03 Actions for Decelerations: Side to Side Datetime: 06/26/2024 10:25 Provider Notified (Name): Ingrid Burckhardt Datetime: 06/26/2024 09:21 Epidural Procedure: Test Dose Datetime: 06/26/2024 08:59 PROCEDURE TIME OUT Procedure Verify: Correct Patient Identity; Correct Side and Site are Marked; Accurate Procedure Consent Form; Agreement on Procedure to be Done; Correct Patient Position; Relevant Images and Results are Properly Labeled and Displayed; Addressed Need to Administer Antibiotics or Fluids for Irrigation; Safety Precautions Based on Patient History or Medication Use ANESTHESIA Anesthesia Plans: Epidural Datetime: 06/26/2024 08:39 PATIENT CARE IV/Blood Work: IV Bolus Started; IV Bolus Given ml @
== END 2024-06-28 16:20 | disposition home or self-care (01) | DRG 807 ==
LOC: WFO 07:57 → FBP 08:01
PROVIDERS: ADMIT Nurse Practitioner; ATTEND Nurse Practitioner
DX: Z37.0 Single live birth; Z3A.40 40 weeks gestation of pregnancy; O70.0 First degree perineal laceration during delivery; O76 Abnormality in fetal heart rate and rhythm complicating labor and delivery